=== PATIENT | female | born 1995 | race African-American/Black ===

== ENCOUNTER 2018-01-09 09:07 | Emergency (ER) | payer OTHER ==
[~2018-01-09] VITALS: Ht 154.9 cm; Wt 122.5 kg
[~2018-01-09 09:07] MED LIST: ALBUTEROL0.09 MG/A1 INH; PEPCID 20MG TAB20 MG PO
[2018-01-09 09:11] VITALS: BP 115/78
[2018-01-09] MEDS ORDERED: KEFLEX500 M1 PO (09:21)
--- NOTE | 2018-01-09 09:21 | ED SKIN/ALLERGY COMPLAINT ---
History of Present Illness General Chief Complaint: Skin Rash/ Abcess Stated Complaint: ABCESS Source: patient Exam Limitations: no limitations Vital Signs & Intake/Output Vital Signs & Intake/Output Vital Signs Date Time Temp Pulse Resp B/P B/P Pulse O2 O2 Flow FiO2 Mean Ox Delivery Rate 01/09 0911 96.0 90 20 115/78 96 Room Air Allergies Coded Allergies: NO KNOWN ALLERGIES (06/30/13) Reconcile Medications Cephalexin (Keflex) 500 MG CAPSULE 1 CAP PO TID cellulitis Triage Note: PT TO ED C/O ? ABSCESS TO LEFT BREAST. THOUGHT IT WAS A BURN FROM HER HEATING PAD "BUT IT POPPED". HAS BEEN USING ANTIBIOTIC OINTMENT WITH NO RELIEF. AFEBRILE. Triage Nurses Notes Reviewed? yes Onset: Abrupt Duration: day(s): Timing: recent history Severity: mild, moderate Location: left breast Possible Factors: no cause identified No Modifying Factors: none : No Patient currently breastfeeds: No HPI: 22-year-old female comes into emergency room with complaints of pain to her left breast. Patient reports that she sleeps the heating pad on her every night and usually falls asleep. She noticed some swelling to her left breast that then opened and had some drainage. She denies any fever chills. Denies any prior history of this. Mild throbbbing burning pain. (Xu Del Toro) Past History Travel History Traveled to [place] past 21 day No Medical History Any Pertinent Medical History? see below for history Neurological: FREQUENT NUNEZ Endocrine: OBESE Surgical History Surgical History: non-contributory Psychosocial History What is your primary language Austrian Tobacco Use: Never used ETOH Use: denies use Illicit Drug Use: denies illicit drug use Family History Hx Contributory? No (Xu Del Toro) Review of Systems Review of Systems Constitutional: Reports: no symptoms. EENTM: Reports: no symptoms. Respiratory: Reports: no symptoms. Cardiovascular: Reports: no symptoms. GI: Reports: no symptoms. Genitourinary: Reports: no symptoms. Musculoskeletal: Reports: no symptoms. Skin: Reports: see HPI. Neurological/Psychological: Reports: no symptoms. Hematologic/Endocrine: Reports: no symptoms. Immunologic/Allergic: Reports: no symptoms. All Other Systems: Reviewed and Negative (Xu Del Toro) Physical Exam Physical Exam General Appearance: well developed/nourished, no apparent distress, alert Head: atraumatic Eyes: Bilateral: normal appearance. Ears, Nose, Throat: normal ENT inspection, hearing grossly normal Neck: normal inspection Respiratory: no respiratory distress Back: normal inspection Extremities: normal inspection, normal range of motion, no edema Neurologic/Psych: awake, alert, oriented x 3, normal mood/affect Skin: intact, rash Skin Problem Location: left breast Skin Problem Character: 2 cm lesion left breast medial to areola, , mild erythema, no fluid collection, no discharge, no fluctuance, tedneress with palpation, center of lesion is white tissue with tissue granulation, (Xu Del Toro) Progress Differential Diagnosis: abscess/cellulitis, allergic reaction, contact dermatitis, 1st degree burn, second degree burn, third degree burn Plan of Care: 01/09/2018 9:25:48 AM I feel symptoms are more consistent with burn as opposed to abscess at this time. No evidence of purulent drainage. No fluctuance. Some mild erythema. It is possible it could've been an abscess that opened up on its own but tissue appears to be more consistent with a burn. Patient told to use topical Neosporin. She was started on Keflex due to the mild surrounding erythema. (Xu Del Toro) Departure Departure Disposition: HOME OR SELF CARE Condition: Stable Clinical Impression Primary Impression: Burn of breast Referrals: Daniel DE LA CRUZ,Gildardo Harris Additional Instructions: Take Keflex as prescribed. Bacitracin. Follow-up for recheck in one week with her [facility] doctor. Return if any other concerns. Please go over all results of today's visit with your primary care doctor. Contact your primary care doctor to let them know you were here in the emergency room. There may be nonspecific findings which may not be related to your visit today here in the emergency room but may require further evaluation and chronic monitoring by your primary care doctor. If you had a laceration today the chance of foreign body always remains. You should follow-up with your primary care doctor for recheck in 3-5 days for a wound check. If you had an x-ray done there is a chance that a fracture could have been missed on initial read and you should follow-up with your primary care doctor for repeat x-rays if symptoms persist. If your blood pressure was elevated here in the emergency room please have rechecked by david primary care doctor within the next 48. If you were prescribed a narcotic here in the emergency room or any type of controlled substances you're not allowed to drive while taking this medication or operate any type of heavy machinery. Narcotics can make you feel lightheaded dizziness nausea and can cause constipation. You may need to tow picker a stool softener. Thank you for choosing [facility] emergency room. Please return to the emergency room immediately if you have any other concerns worsening of symptoms. Departure Forms: Customer Survey General Discharge Information Prescriptions: Current Visit Scripts Cephalexin (Keflex) 1 CAP PO TID #21 CAP (Xu Del Toro) PA/CORPORATE COMMUNICATIONS ASSOCIATE Co-Sign Statement Statement: ED Attending supervision documentation- [] I saw and evaluated the patient. I have also reviewed all the pertinent lab results and diagnostic results. I agree with the findings and the plan of care as documented in the PA's/CORPORATE COMMUNICATIONS ASSOCIATE's documentation. [X] I have reviewed the ED Record and agree with the PA's/CORPORATE COMMUNICATIONS ASSOCIATE's documentation. [] Additions or exceptions (if any) to the PAs/CORPORATE COMMUNICATIONS ASSOCIATE's note and plan are summarized below: [] (Bebo DE LA CRUZ,Edilberto Duffy)
== END 2018-01-09 09:29 ==
LOC: ERH 09:07
DX: T21.11XA Burn of first degree of chest wall, initial encounter (principal); X19.XXXA Contact with other heat and hot substances, initial encounter; Y92.9 Unspecified place or not applicable; Y93.9 Activity, unspecified